=== PATIENT | female | born 1975 | race Caucasian/White ===

== ENCOUNTER 2017-05-14 12:03 | Emergency (ER) | payer SELFPAY ==
[~2017-05-14 12:03] MED LIST: PROT40TA PO
[2017-05-14 12:05] VITALS: BP 132/90; PULSE 76; RESP 16; TEMP 98.3; O2SAT 98
--- NOTE | 2017-05-14 12:30 | PD ---
HPI Chief Complaint: Musculoskeletal Complaint Time Seen by Provider: 12:05 Travel History International Travel<30 days: No Contact w/Intl Traveler<30days: No Traveled to known affect area: No History of Present Illness HPI 42-year-old female with chief complaint of right elbow pain status post mechanical fall today. Patient is speaking she was over translation services she refused and requested her daughter translate for her. She reports she tripped and fell falling onto a right flexed elbow. She has pain within the elbow, nonradiating, worse with extension, relieved with immobilization held in flexion. Severity 6 out of 10. She denies numbness or tingling in the distal extremity. She reports normal sensation and movement of the fingers hand and wrist. She denies any other injuries. [facility] Past Medical History Medical History: Denies Significant Hx Diminished Hearing: No ?: Not Menopausal: No : 5 Para: 5 Past Surgical History Section: Yes (X 5) Cholecystectomy: Yes Social History Alcohol Use: No Tobacco Use: No Substance Use: No Allergies-Medications (Allergen,Severity, Reaction): Coded Allergies: No Known Allergies (Unverified , 05/14/17) Reported Meds & Prescriptions Reported Meds & Active Scripts Active Review of Systems Except as stated in HPI: all other systems reviewed are Neg General / Constitutional: No: Fever Eyes: No: Visual changes HENT: No: Headaches Cardiovascular: No: Chest Pain or Discomfort Respiratory: No: Shortness of Breath Gastrointestinal: No: Abdominal Pain Genitourinary: No: Dysuria Skin: No Rash Neurologic: No: Weakness Physical Exam Narrative GENERAL: Well-nourished, well-developed patient. SKIN: Focused skin assessment warm/dry. No ecchymosis. HEAD: Normocephalic. Atraumatic EYES: No scleral icterus. No injection or drainage. EOMs intact NECK: Supple, trachea midline. No JVD or lymphadenopathy. CARDIOVASCULAR: Regular rate and rhythm without murmurs, gallops, or rubs. RESPIRATORY: Breath sounds equal bilaterally. No accessory muscle use. GASTROINTESTINAL: Abdomen soft, non-tender, nondistended. MUSCULOSKELETAL: No cyanosis, or edema. Right upper extremity: Point tenderness over the medial and lateral epicondyles of right elbow. Patient is unable to fully extend the elbow due to pain. Held in flexion against body. 2 + distal pulses. Normal sensation within the extremity. Brisk cap refill. BACK: Nontender without obvious deformity. No CVA tenderness. Data Data Last Documented VS Vital Signs Date Time Temp Pulse Resp B/P Pulse Ox O2 Delivery O2 Flow Rate FiO2 05/14/17 12:05 98.3 76 16 132/90 98 Orders Elbow, Complete (4 Vws) (05/14/17 ) Sling Cradle Arm (05/14/17 ) MDM Medical Decision Making Medical Screen Exam Complete: Yes Emergency Medical Condition: Yes Differential Diagnosis Right elbow paincontusion versus fracture versus sprain versus strain Narrative Course Patient seen and evaluated. Patient stable at time of exam. Extremity is neurovascularly intact without deformity. X-ray pending X-ray of right elbow positive effusion no visualized fracture. Given the history of trauma with joint effusion occult fracture is possible. Diagnostic findings discussed with patient and family. She was offered splinting which she refused. For this type of small fracture a sling is appropriate patient patient will be put in sling and instructed to follow-up with her. She agrees to plan. Diagnosis Primary Impression: Elbow effusion Qualified Code: M25.421 - Elbow effusion, right Additional Instructions: Where the sling as prescribed. Take [id number] Motrin 600-800 mg as needed for pain. Take pain medication as needed for pain. Ice and elevate the extremity. Make an appoint for follow-up with with her. Return to emergency department if he developed new or worsening symptoms. Scripts Tramadol (Ultram)50 Mg Tab50 Mg PO Q6H PRN (PAIN) #12 TAB Ref 0 Prov:Nia Fernandez 05/14/17 Disposition: 01 DISCHARGE HOME Condition: Stable Nia Fernandez May 14, 2017 12:30
--- NOTE | 2017-05-14 14:51 | RADRPT ---
EXAM DATE/TIME: 05/14/2017 13:15 [place] COMPARISON: No previous studies available for comparison. INDICATIONS : Fell on right elbow, has pain MEDICAL HISTORY : None. SURGICAL HISTORY : None. ENCOUNTER: Initial ACUITY: 1 day PAIN SCORE: 10/10 LOCATION: Right elbow FINDINGS: There is a positive elbow joint effusion. Although no fracture is seen this is a suggestive of a nond isplaced fracture in the setting of trauma. Normal alignment. CONCLUSION: 1. Positive elbow joint effusion suggestive of a nondisplaced fracture although none is visualized on plain film. Jose Enrique Elliott MD on May 14, 2017 at 14:46 Board Certified Radiologist. This report was verified electronically.
[2017-05-14] MEDS ORDERED: ULTR50TA5 PO (15:02)
[2017-05-14] MEDS ORDERED: KETOROLAC TROMETHAMINE 60 MG/2 ML (IM) VIAL IM ONE (15:15)
== END 2017-05-14 15:20 | disposition home or self-care (01) ==
LOC: PHEFT 12:03
DX: M25.421 Effusion, right elbow (principal); W01.0XXA Fall on same level from slipping, tripping and stumbling without subsequent striking against object, initial encounter
CPT/HCPCS: 73080; 96372; 99284; J1885